=== PATIENT | male | born 1960 | race Hispanic/Latino ===

== ENCOUNTER → 2021-01-01 | Day surgery (SDC) | payer BC ==
[~2021-01-01] MED LIST: CELEBREX200 MG PO; LISINOPRIL2.5 MG PO; MULTI-VITAMIN1 EACH PO; TUMERIC PO; VITAMIN E400 UNI1 PO
[2021-01-01 16:50] VITALS: BP 117/97
== END | disposition home or self-care (01) ==
LOC: OR 12:59
PROVIDERS: ATTEND Internal Medicine Gastroenterology
DX: Z12.11 Encounter for screening for malignant neoplasm of colon (principal); D12.7 Benign neoplasm of rectosigmoid junction; D12.2 Benign neoplasm of ascending colon; D12.5 Benign neoplasm of sigmoid colon; D12.3 Benign neoplasm of transverse colon; Z68.37 Body mass index [BMI] 37.0-37.9, adult; I10 Essential (primary) hypertension; K57.30 Diverticulosis of large intestine without perforation or abscess without bleeding; K64.8 Other hemorrhoids; Z01.810 Encounter for preprocedural cardiovascular examination
CPT/HCPCS: 45385; 93005

== ENCOUNTER 2021-11-15 11:45 | Emergency (ER) | payer BC, OTHER ==
[~2021-11-15] VITALS: Ht 193 cm; Wt 138.0 kg
[2021-11-15] MEDS ORDERED: DEXAMETHASONE SOD PHOS INJ 4 MG/ML SDV IM ONE (12:15)
[2021-11-15] MEDS ORDERED: CEFTRIAXONE 1 GM VIAL IM ONE (12:15)
[2021-11-15] MEDS ORDERED: DEXAMETHASONE SOD PHOS INJ 4 MG/ML SDV ONE (12:29)
[2021-11-15] MEDS ORDERED: PREDNISONE20 MG PO (13:00)
[2021-11-15] MEDS ORDERED: CEFDINIR300 MG PO (13:00)
[2021-11-15] MEDS ORDERED: NAPROSYN500 MG PO (13:00)
== END 2021-11-15 13:08 | disposition home or self-care (01) ==
LOC: FSED 12:08
DX: M79.671 Pain in right foot (principal); L03.115 Cellulitis of right lower limb; I10 Essential (primary) hypertension; F17.210 Nicotine dependence, cigarettes, uncomplicated
CPT/HCPCS: 36415; 73630; 84550; 96372; 99283; J0696; J1100

== ENCOUNTER → 2022-03-31 | Day surgery (SDC) | payer BC, OTHER ==
[~2022-03-31] MED LIST changes: +CEFDINIR300 MG PO; +FENTANYL CITRATE/PF 100MCG/2 ML INJ ONE; +HYOSCYAMINE SULFATE 0.5 MG/ML INJ ONE; +LIDOCAINE HCL 2% LOCAL INJ 5 ML SDV VIAL INJ ONE; +MIDAZOLAM HCL 2 MG/2 ML VIAL ONE; +NAPROSYN500 MG PO; +PREDNISONE20 MG PO; +PROPOFOL IV EMULSION 10 MG/ML 20 ML VIAL ONE
[2022-03-31 12:30] VITALS: BP 102/79
== END | disposition home or self-care (01) ==
LOC: OR 10:04
PROVIDERS: ATTEND Internal Medicine Gastroenterology
DX: Z09 Encounter for follow-up examination after completed treatment for conditions other than malignant neoplasm (principal); D12.2 Benign neoplasm of ascending colon; K57.30 Diverticulosis of large intestine without perforation or abscess without bleeding; K64.8 Other hemorrhoids; Z71.3 Dietary counseling and surveillance; I10 Essential (primary) hypertension; M19.90 Unspecified osteoarthritis, unspecified site; F17.210 Nicotine dependence, cigarettes, uncomplicated; Z01.810 Encounter for preprocedural cardiovascular examination; Z79.899 Other long term (current) drug therapy; Z68.37 Body mass index [BMI] 37.0-37.9, adult
CPT/HCPCS: 45385; 93005; J1980; J2001; J2250; J2704; J3010; 45378